=== PATIENT | male | born 1945 | race Caucasian/White ===

== ENCOUNTER → 2016-09-06 | Outpatient (CLI) | payer OTHER, MEDICARE ==
--- NOTE | 2016-09-06 19:49 | DX ---
Lumbar spine, 2 views History: Postlaminectomy syndrome, M96.1. Findings: Compare June 08, 2016. Clamps between spinous processes of L3-L4 and L4-L5 are intact a nd unchanged. Intervertebral disks shows severe loss of height at all lumbar levels, with lateral sub luxation at L3-L4, unchanged. [place] of dextroscoliosis at L3 is unchanged. No compression fracture of lumbar spine. Sacroiliac joints and symphysis pubis are normal. Calcifications of the abdominal aorta reveal an aneurysm of 4.7 cm maximum AP diameter, unchanged from May. Impressions: 1. Fusions of spinous processes of L3-L4 and L4-L5, unchanged. 2. Chronic multilevel lumbar disk degeneration with scoliosis and subluxation, unchanged. 3. Abdominal aortic aneurysm.
== END ==
LOC: FIMAGING 15:50
PROVIDERS: ATTEND Orthopaedic Surgery Orthopaedic Surgery of the Spine
DX: M51.36 Other intervertebral disc degeneration, lumbar region (principal); I71.4 Abdominal aortic aneurysm, without rupture; Z98.1 Arthrodesis status

== ENCOUNTER → 2016-09-13 | Outpatient (CLI) | payer OTHER, MEDICARE ==
--- NOTE | 2016-09-13 18:58 | DX ---
Cervical spine, 3 views History: Left-sided neck pain. Comparison: CT soft tissue neck of January 06, 2016. Findings: Trace anterolisthesis of C3 on C4 and C4 on C5 is stable. No fracture is identified. Verteb ral body heights are preserved. There is mild vertebral and uncovertebral spondylosis at C2-C3 and C3 -C4, with moderate vertebral and uncovertebral spondylosis at C4-C5. Severe vertebral and uncovertebr al spondylosis is present from C5 through C7, similar in appearance to the comparison CT. There is mu ltilevel moderate to severe facet hypertrophy, most prominent at C4-C5. There is no prevertebral soft tissue swelling. Atherosclerotic calcifications are again noted at the carotid bifurcations. Impression: Severe degenerative change from C5 through C7, with additional degenerative change as ab ove, with trace spondylolistheses at C3-C4 and C4-C5.
== END ==
LOC: FIMAGING 10:15
PROVIDERS: ATTEND Orthopaedic Surgery Orthopaedic Surgery of the Spine
DX: M50.322 Other cervical disc degeneration at C5-C6 level (principal); M43.12 Spondylolisthesis, cervical region; M46.92 Unspecified inflammatory spondylopathy, cervical region

== ENCOUNTER → 2017-12-20 | Outpatient (CLI) | payer OTHER, MEDICARE | LOC: FIMAGING 09:54 | PROVIDERS: ATTEND Family Medicine | DX: I71.4 Abdominal aortic aneurysm, without rupture (principal); I70.0 Atherosclerosis of aorta ==

== ENCOUNTER 2018-09-14 14:23 | Emergency (ER) | payer OTHER, MEDICARE ==
[2018-09-14] MEDS ORDERED: NS 500 ML IV ONE (15:47)
[2018-09-14] MEDS ORDERED: GABAPENTIN 300 MG CAP PO ONE (15:49)
--- NOTE | 2018-09-14 15:57 | EDPHY ---
H & P Time Seen by Provider: 09/14/18 15:11 HPI/ROS: HPI Mouth, facial pain. Concerned about infection. 73-year-old male by private vehicle with his . This patient has a long history of trigeminal neuralgia. He has been managed in the past with a combination of Depakote and baclofen. He presents to the emergency department complaining of intermittent attacks of his trigeminal neuralgia involving his left lower and mid maxillary area. He states that about 2 years ago he had a very serious dental and facial infection. He reports that this pain is now in the same location as that infection was in. He is concerned about possible developing infection similar to what he had in the past. He initially had seen primary care physician regarding this and was told to come to the emergency department for evaluation. He currently is not taking any regular medication for his trigeminal neuralgia. He has an appointment to see Dr. Gabino Barber of the neurology service next week for ongoing management of this problem. ROS: Constitutional: No fever, no chills. No weakness. Eyes: No discharge. No changes in vision. ENT: No sore throat. No nasal congestion or rhinorrhea. As above. Respiratory: No cough. No shortness of breath. Cardiac: No chest pain, no palpitations. Gastrointestinal: No abdominal pain, no vomiting, no diarrhea. Genitourinary: No hematuria. No dysuria or increased frequency with urination. Musculoskeletal: No back pain. No neck pain. No myalgias or arthralgias. Skin: No rashes. Neurological: No headache. No focal weakness or altered sensation. Past medical history: Hyperlipidemia, hypothyroid, factor 5 Leiden deficiency, AAA at 4 cm. Social history: Here with his . Nonsmoker. No alcohol. Physical Exam: General Appearance: Alert, no distress. He intermittently looks uncomfortable when he has attacks of his trigeminal neuralgia. This patient is responding to questions appropriately and in full sentences. This patient appears well- hydrated and well-nourished. Eyes: Pupils equal and round no pallor or injection. No lid edema, erythema or injection. ENT, Mouth: Mucous membranes are moist. The pharyngeal tissues are unremarkable. No edema or swelling. No asymmetry suggestive of abscess. No erythema or exudates. Dentures are unremarkable. There is no evidence of gingival swelling or swelling of the buccal mucosa. He has no facial swelling or erythema, trigeminal nerve distributions are intact. No cervical, submandibular, submental lymphadenopathy. Neurological: Motor sensory function is grossly intact. Cranial nerves are normal. Gait is normal. Skin: Warm and dry, no rashes. Musculoskeletal: Neck is supple and nontender. Extremities are symmetrical. All joints range without pain or impingement. Psychiatric: No agitation. No depression. Database: EKG: Imaging: Contrast enhanced maxillofacial CT: No obvious infection. There is a small sliver of what could represent inflammation left maxilla. Please see report by reading radiologist Dr. Karl Hannon. I discussed this study in detail with her. Procedures: Emergency department course: Triage vital signs reviewed. He is moderately hypertensive. Vital signs are otherwise unremarkable. His presentation is consistent with trigeminal neuralgia. He is afebrile. IV was established in triage. CT imaging of his maxillofacial tissues will be obtained to evaluate for possible infection. This will be contrast enhanced. I-STAT creatinine is within normal limits at 0.9. The patient agrees also to try a dose of gabapentin to see if this helps him with his trigeminal neuralgia pain. He consents to workup. 5:30 p.m., the patient was re-evaluated, results of CT scan discussed with him and his . He has intermittent attacks of his trigeminal neuralgia. His vital signs have remained normal. He has not had a fever. I think infectious etiology is unlikely. Plan at this time is to start him again on Depakote and baclofen which he has taken with successful relief of his trigeminal neuralgia in the past. He has prescriptions in verified with his pharmacist that he can fill them tonight. He will follow up with Neurology next week as scheduled. I also discussed ENT follow-up to re-evaluate findings as noted above on CT. He and his feel comfortable with this plan. I have also given him my cell phone number so that if he requires anything more over the weekend but does not think he needs to return to the emergency department he can call me. His son is a personal friend of mine. Return to emergency department precautions were thoroughly reviewed with him and his . All of their questions were answered. He was discharged from the emergency department in good condition. Differential Diagnosis: The differential diagnosis on this patient includes but is not limited to trigeminal neuralgia. Maxillofacial traumatic injury, infection unlikely. This represents a partial list of diagnoses considered. These considerations are based on history, physical exam, past history, reassessment and diagnostic testing. Smoking Status: Former smoker Constitutional: Initial Vital Signs Temperature (C) 36.8 C 09/14/18 14:32 Heart Rate 58 L 09/14/18 14:32 Respiratory Rate 18 09/14/18 14:32 Blood Pressure 149/97 H 09/14/18 14:32 O2 Sat (%) 95 09/14/18 14:32 O2 Delivery Mode Room Air Allergies/Adverse Reactions: phenytoin sodium [From Dilantin] Allergy (Severe, Verified 09/14/18 14:35) Rash phenytoin sodium extended [From Dilantin] Allergy (Severe, Verified 09/14/18 14: 35) Rash carbamazepine [From Tegretol] Allergy (Verified 09/14/18 14:35) Rash levofloxacin [From Levaquin] Allergy (Verified 09/14/18 14:36) Home Medications: Medication Instructions Recorded Crestor 5mg 5 mg PO DAILY 02/02/16 Levothyroxine 75 mcg PO DAILY 02/02/16 Neurontin 100 MG (RX) 100 mg PO BID 02/02/16 Tylenol 325mg (OTC) 1 - 2 tab PO PRN PRN 02/02/16 Medical Decision Making - Diagnostics Imaging Results: Imaging Impressions Face CT 09/14/18 15:57 Impression: 1. Sinus disease in the right maxillary sinus. I suspect this is an incidental finding. 2. Bony defect of approximately 10 mm in distance at the inferolateral left maxillary wall, possibly from bony resorption as a result of multiple prior dental work. This might be an incidental finding, and overlying fibrinous scar would not be identified by CT scan. 3. Soft tissue thickening that is asymmetric from the other side just superior and lateral to the inferior maxillary antrum on the left, adjacent to that bony defect. Again, differential includes scar formation versus early developing inflammation/infection. The lack of overlying subcutaneous inflammation or stranding is more reassuring that this might be scar. Findings are discussed with Dr. Castorena in the Emergency Department. The patient clinically does not have any signs or symptoms of infection in this region, and trigeminal neuralgia is thought to be likely the clinical diagnosis. Routine ENT follow up is suggested. - Data Points Laboratory Results: 09/14/18 15:55 POC Hgb 15.0 gm/dL gm/dL (13.7-17.5) POC Hct 44 % % (40-51) POC Sodium 141 mEq/L mEq/L (135-145) POC Potassium 3.9 mEq/L mEq/L (3.3-5.0) POC Chloride 104 mEq/L mEq/L (97-110) POC BUN 21 mg/dL mg/dL (7-23) POC Creatinine 0.9 mg/dL mg/dL (0.7-1.3) POC Glucose 82 mg/dL mg/dL (70-100) Medications Given: Discontinued Medications Gabapentin (Neurontin) 300 mg PO EDNOW ONE Stop: 09/14/18 15:50 Last Admin: 09/14/18 15:54 Dose: 300 mg Sodium Chloride (Ns) 500 mls @ 0 mls/hr IV ONCE ONE; Wide Open PRN Reason: Protocol Stop: 09/14/18 15:48 Last Admin: 09/14/18 15:54 Dose: 500 mls Point of Care Test Results: Chemistry 09/14/18 15:55 POC Sodium 141 mEq/L mEq/L (135-145) POC Potassium 3.9 mEq/L mEq/L (3.3-5.0) POC Chloride 104 mEq/L mEq/L (97-110) POC BUN 21 mg/dL mg/dL (7-23) POC Creatinine 0.9 mg/dL mg/dL (0.7-1.3) POC Glucose 82 mg/dL mg/dL (70-100) ISTAT H&H 09/14/18 15:55 POC Hgb 15.0 gm/dL gm/dL (13.7-17.5) POC Hct 44 % % (40-51) Departure - Departure Disposition: Home, Routine, Self-Care Clinical Impression: Trigeminal neuralgia Condition: Good Instructions: Trigeminal Neuralgia (ED) Additional Instructions: Read and follow provided instructions. Follow-up with Neurology, Dr. Gabino Barber, as scheduled next week for re- evaluation and further management of your trigeminal neuralgia. Fill prescription for and start taking baclofen and Depakote as prescribed tonight as discussed. Return to the emergency department for fever, facial swelling, facial discoloration, redness or warmth over your cheek area or other serious concerns. Feel free to call me as discussed if you have any questions or concerns. I have also provided you an ENT referral as discussed. Referrals: Gabino Barber DO [Medical Doctor] - As per Instructions [facility] [Outside] - As per Instructions
[2018-09-14] MEDS ORDERED: IOPAMIDOL (ISOVUE 370) 75 ML BTL IV ONE (16:13)
[2018-09-14 17:54] VITALS: BP 179/98
== END 2018-09-14 17:54 | disposition home or self-care (01) ==
DX: G50.0 Trigeminal neuralgia (principal); D68.51 Activated protein C resistance; E78.5 Hyperlipidemia, unspecified; E03.9 Hypothyroidism, unspecified; I71.4 Abdominal aortic aneurysm, without rupture; Z87.891 Personal history of nicotine dependence; Z79.899 Other long term (current) drug therapy
CPT/HCPCS: 70487; 99285; Q9967; 82435-PO; 82565-PO; 82947-PO; 84132-PO; 84295-PO; 84520-PO; 85014-ER

== ENCOUNTER → 2018-09-15 | Outpatient (CLI) | payer OTHER, MEDICARE | LOC: FIMAGING 08:34 | PROVIDERS: ATTEND Family Medicine | DX: I71.4 Abdominal aortic aneurysm, without rupture (principal) | CPT/HCPCS: 74175-ER; Q9967 ==

== ENCOUNTER → 2018-09-15 | Outpatient (CLI) | payer OTHER, MEDICARE ==
[~2018-09-15] MED LIST: IOPAMIDOL (ISOVUE-370) 150 ML BTL IV ONE
== END ==
LOC: CIMAGING 13:42
PROVIDERS: ATTEND Family Medicine
DX: I71.4 Abdominal aortic aneurysm, without rupture (principal)
CPT/HCPCS: 74175; Q9967

== ENCOUNTER → 2018-09-22 | Outpatient (CLI) | payer OTHER, MEDICARE | LOC: FIMAGING 15:54 ==

== ENCOUNTER 2018-10-18 11:22 | Inpatient (IN) | payer OTHER, MEDICARE ==
[2018-10-18] MEDS ORDERED: LR 1,000 ML IV ONE (11:42)
[2018-10-18] MEDS ORDERED: LIDOCAINE 1% 2 ML INJ ID PRN (11:42)
[2018-10-18] MEDS ORDERED: BUPIVACAINE 0.5% 30 ML SDV ONE (12:04)
[2018-10-18] MEDS ORDERED: THROMBIN (BOVINE) 20,000 UNIT VIAL TP ONE (12:04)
[2018-10-18] MEDS ORDERED: IOPAMIDOL (ISOVUE-300) 100 ML BTL ONE ×4 (12:21→15:17)
[2018-10-18] MEDS ORDERED: THROMBIN (BOVINE) 20,000 UNIT SPRAY TP ONE (12:31)
[2018-10-18] MEDS ORDERED: ceFAZolin 2 GM/DEXTROSE 100 ML IV ONE (12:59)
[2018-10-18] MEDS ORDERED: ROCURONIUM 100 MG/10 ML VIAL ONE (13:07)
[2018-10-18] MEDS ORDERED: PROPOFOL 200 MG/20 ML VIAL ONE ×2 (13:08→14:01)
[2018-10-18] MEDS ORDERED: fentaNYL 250 MCG/5 ML INJ ONE (13:08)
[2018-10-18] MEDS ORDERED: LIDOCAINE 2% 5 ML SDV ONE (13:09)
[2018-10-18] MEDS ORDERED: CEFAZOLIN 2 GM/DEXTROSE/100 ML BAG IV ONE (13:15)
--- NOTE | 2018-10-18 13:17 | PDHPUP ---
History & Physical Update H&P update statement: This history and physical update is based on an assessment of the patient which was completed after admission or registration (within 24 hours), but prior to the surgery/procedure. H&P update: H&P reviewed & patient examined, no change in patient's condition since H&P completed
--- NOTE | 2018-10-18 13:21 | POSTANESTH ---
Post Anesthetic Evaluation Cardiovascular Status: Normal, Stable Respiratory Status: Normal, Stable Level of Consciousness/Mental Status: Can Participate in Eval, Alert and Oriented Pain Control: Adequate, Prn Tx Ordered Nausea/Vomiting Control: Adequate, Prn Tx Ordered Complications Possibly Related to Anesthesia: None Noted
--- NOTE | 2018-10-18 13:21 | PDANEPAE ---
ANE History of Present Illness AAA for endovascular repair ANE Past Medical History - Cardiovascular History Hx Hypertension: No Hx Arrhythmias: No Hx Chest Pain: No Hx Coronary Artery / Peripheral Vascular Disease: Yes Hx CHF / Valvular Disease: No Hx Palpitations: No Cardiovascular History Comment: HYPERLIPIDEMIA. abdominal aortic aneurysm monitored (4cm now) - Pulmonary History Hx COPD: No Hx Asthma/Reactive Airway Disease: No Hx Recent Upper Respiratory Infection: Yes Hx Oxygen in Use at Home: No Hx Sleep Apnea: No Sleep Apnea Screening Result - Last Documented: Positive Pulmonary History Comment: 07/2018 URI - Neurologic History Hx Cerebrovascular Accident: No Hx Seizures: No Hx Dementia: No Neurologic History Comment: NEURALGIA- NEURONTIN. HX TRIGEMINAL NEURALGIA ( REMISSION) - Endocrine History Hx Diabetes: No Endocrine History Comment: HYPOTHYROID - Renal History Hx Renal Disorders: No - Liver History Hx Hepatic Disorders: No - Neurological & Psychiatric Hx Hx Neurological and Psychiatric Disorders: Yes Neurological / Psychiatric History Comment: LT SIDED TRIGEMINAL NEURALGIA - Cancer History Hx Cancer: No - Congenital Disorder History Hx Congenital Disorders: No - GI History Hx Gastrointestinal Disorders: No - Other Health History Other Health History: LT TRIGEMINAL NUURALGIA. FACTOR V LEIDEN. CHRONIC BACK PAIN HX OF PREV BACK SURG FOR STENOSIS AND RUPT DISC. DENTAL IMPLANTS. OSTEOARTHRITIS - Chronic Pain History Chronic Pain: Yes (BACK,LT SIDE OF FACE) - Surgical History Prior Surgeries: LARYNGOSCOPY 2016. 12/04/2015 L3-4 4-5 LAMINECTOMY, L4-5 MICRODISCECTOMY. MARCO ING HERNIA. MARCO CATARACT ANE Review of Systems Review of Systems: - Exercise capacity METS (RN): 4 METS ANE Patient History - Allergies Allergies/Adverse Reactions: phenytoin sodium [From Dilantin] Allergy (Severe, Verified 10/18/18 11:41) Rash phenytoin sodium extended [From Dilantin] Allergy (Severe, Verified 10/18/18 11: 41) Rash carbamazepine [From Tegretol] Allergy (Verified 10/18/18 11:41) Rash levofloxacin [From Levaquin] Allergy (Verified 10/18/18 12:03) - Home Medications Home medications: home medication list seen and reviewed Home Medications: Crestor 5mg 5 mg PO DAILY 02/02/16 [Last Taken 10/14/18] Levothyroxine 75 mcg PO DAILY 02/02/16 [Last Taken 10/14/18] Baclofen 20 mg (*) QID 10/12/18 [Last Taken 10/18/18 07:00] Depakote ER 250 MG (*) QID 10/12/18 [Last Taken 10/18/18 10:30] Herbals/Supplements -Info Only DAILY 10/12/18 [Last Taken 10/14/18] Tylenol 325mg (*) PRN 10/13/18 [Last Taken 10/17/18] - NPO status NPO Since - Liquids (Date): 10/18/18 NPO Since - Liquids (Time): 10:00 NPO Since - Solids (Date): 10/17/18 NPO Since - Solids (Time): 20:00 - Smoking Hx Smoking Status: Former smoker - Family Anes Hx Family Hx Anesthesia Complications: NONE ANE Labs/Vital Signs - Vital Signs Blood Pressure: 134/99 Heart Rate: 71 Respiratory Rate: 16 O2 Sat (%): 96 Height: 187.96 cm Weight: 90.718 kg ANE Physical Exam - Airway Neck exam: FROM Mallampati Score: Class 2 Mouth exam: normal dental/mouth exam - Pulmonary Pulmonary: no respiratory distress - Cardiovascular Cardiovascular: regular rate and rhythym - ASA Status ASA Status: III ANE Anesthesia Plan Anesthesia Plan: general endotracheal anesthesia Lines/Monitors: arterial line Specialized Airway: video laryngoscope
[2018-10-18] MEDS ORDERED: PHENYLEPHRINE 10 MG/ML SDV ONE (13:48)
[2018-10-18] MEDS ORDERED: DEXAMETHASONE 4 MG/ML VIAL ONE (14:02)
[2018-10-18] MEDS ORDERED: ONDANSETRON 4 MG/2 ML VIAL ONE (14:06)
[2018-10-18] MEDS ORDERED: SUGAMMADEX SODIUM 200 MG/2 ML VIAL IVP ONE (14:06)
[2018-10-18] MEDS ORDERED: HEPARIN 10,000 UNIT/10 ML MDV (1,000 UNIT/ML) ONE (14:32)
[2018-10-18] MEDS ORDERED: ePHEDrine SULFATE 25 MG/5 ML SYR ONE (14:35)
[2018-10-18] MEDS ORDERED: LIDOCAINE 1% 300 MG/30 ML SDV ONE (15:17)
[2018-10-18] MEDS ORDERED: HYDROmorphONE/DILAUDID 2 MG/ML INJ IVP PRN (15:49)
[2018-10-18] MEDS ORDERED: METOCLOPRAMIDE 10 MG/2 ML VIAL IVP PRN (15:49)
[2018-10-18] MEDS ORDERED: NALOXONE HCL 0.4 MG/ML INJ IVP PRN (15:49)
[2018-10-18] MEDS ORDERED: ALBUTEROL 3 ML DEYVIAL IH PRN (15:49)
[2018-10-18] MEDS ORDERED: ACETAMINOPHEN 500 MG TAB PO PRN (15:49)
[2018-10-18] MEDS ORDERED: LR 500 ML IV PRN (15:49)
[2018-10-18] MEDS ORDERED: HYDROCODONE/APAP 5/325 TAB PO PRN (15:49)
[2018-10-18] MEDS ORDERED: ONDANSETRON 4 MG/2 ML VIAL IVP PRN ×2 (15:49→15:53)
[2018-10-18] MEDS ORDERED: oxyCODONE IR 5 MG TAB PO PRN (15:49)
[2018-10-18] MEDS ORDERED: PROMETHAZINE HCL 25 MG/ML INJ IVP PRN (15:49)
[2018-10-18] MEDS ORDERED: fentaNYL 100 MCG/2 ML INJ IVP PRN (15:49)
[2018-10-18] MEDS ORDERED: MAGNESIUM HYDROXIDE 30 ML UDCUP PO PRN (15:53)
[2018-10-18] MEDS ORDERED: LACTULOSE 20 GM/30 ML UDCUP PO PRN (15:53)
[2018-10-18] MEDS ORDERED: BISACODYL 10 MG SUPP PR PRN (15:53)
[2018-10-18] MEDS ORDERED: POLYETHYLENE GLYCOL 3350 17 GM PKT PO PRN (15:53)
--- NOTE | 2018-10-18 15:53 | PDRADPN ---
Radiology Procedure Note Date of Procedure: 10/18/18 Radiologist: Adali Hannon Anesthesia: GET(General Endotracheal) Pre-op Diagnosis: AAA Post-op Diagnosis: SAME Indication: ENLARGING AAA Procedure: ENDOVASCULAR REPAIR WITH BILATERAL CUTDOWNS Finding(s): NO LEAK Inf/Abcess present in the surg proc area at time of surgery?: No
[2018-10-18] MEDS ORDERED: fentaNYL 100 MCG/2 ML INJ ONE (16:00)
[2018-10-18] MEDS ORDERED: NS 1,000 ML IV SCH (16:00)
[2018-10-18] MEDS ORDERED: PROTAMINE SULFATE 50 MG/5 ML VIAL IVP ONE (16:15)
[2018-10-18] MEDS ORDERED: LABETALOL HCL 20 MG/4 ML INJ IVP ONE ×2 (16:59→17:14)
[2018-10-18] MEDS: LABETALOL HCL 5 MG/ML 20 ML MDV IVP PRN ×3 (17:02→17:19)
[2018-10-18] MEDS ORDERED: niCARdipine/NACL 200 ML IV SCH (17:30)
[2018-10-18] MEDS: SENNOSIDES/DOCUSATE SODIUM TAB PO SCH (20:03)
[2018-10-18] MEDS: OXYCODONE/APAP 5/325 TAB PO PRN ×2 (20:03→21:29)
[2018-10-18] MEDS ORDERED: ACETAMINOPHEN 325 MG TAB PO PRN (20:21)
[2018-10-18] MEDS ORDERED: DIVALPROEX ER 250 MG TAB PO SCH (21:00)
[2018-10-18] MEDS: DIVALPROEX NA 250 MG TAB PO SCH ×2 (21:45→22:34)
[2018-10-18] MEDS: BACLOFEN 10 MG TAB PO SCH (21:45)
[2018-10-18 22:33] LABS: PLATELET COUNT 139 10^3/uL (150-400)
[2018-10-19] MEDS: OXYCODONE/APAP 5/325 TAB PO PRN ×3 (03:22→19:51)
[2018-10-19] MEDS: DIVALPROEX NA 250 MG TAB PO SCH ×4 (06:57→19:54)
[2018-10-19] MEDS: LEVOTHYROXINE 88 MCG TAB PO SCH (06:57)
[2018-10-19] MEDS: BACLOFEN 10 MG TAB PO SCH ×4 (07:01→19:52)
[2018-10-19 07:05] LABS: PLATELET COUNT 113 10^3/uL (150-400)
--- NOTE | 2018-10-19 08:07 | CPEKG ---
Test Reason : OPEN Blood Pressure : / mmHG Vent. Rate : 060 BPM Atrial Rate : 057 BPM P-R Int : 203 ms QRS Dur : 141 ms QT Int : 485 ms P-R-T Axes : 071 082 270 degrees QTc Int : 485 ms Sinus rhythm LBBB Confirmed by Devan Parikh ([id number]) on 10/19/2018 8:07:24 AM Referred By: Adali Hannon Confirmed By:Devan Parikh
[2018-10-19] MEDS: ROSUVASTATIN CALCIUM 10 MG TAB PO SCH (08:25)
[2018-10-19] MEDS: SENNOSIDES/DOCUSATE SODIUM TAB PO SCH ×2 (08:25→19:53)
--- NOTE | 2018-10-19 09:43 | ASMTCASEMG ---
Living Arrangements What is your living Answers: With Spouse arrangement? Who do you live with? Type Of Residence What kind of residence do Answers: House you live in? Discharge Plan Comments Coordination Status Comments Notes: Patient is a 73yo male who comes to [facility] for surgery for abdominal aortic aneurysm. PT/OT evals ordered. D/C plan TBD. CM will follow. Date Signed: 10/19/2018 09:42 AM Electronically Signed By:Karolina Wilson LCSW
--- NOTE | 2018-10-19 13:53 | PDMN ---
Medical Necessity Medical necessity: [facility] IP only surgery; cpt 60714 AAA Repair
--- NOTE | 2018-10-19 14:12 | SOAPPROG ---
SOAP Progress Note Assessment/Plan: Assessment: 73 y/o M s/p bilateral femoral artery exposures for endovascular AAA repair POD #1 S: No complaints, pain controlled. Reports that his trigeminal neuralgia is improved. O: Alert Afebrile RRR CTAB, no increased WOB Bilateral lower extremities: incisions well dressed, feet warm, + pedal pulses Plan: Ancef q8hrs for 24 hours for graft protection. Dispo: home likely tomorrow. 10/19/18 14:09 Objective: Vital Signs Temp Pulse Resp BP Pulse Ox 37 C 61 14 119/62 95 10/19/18 12:00 10/19/18 13:57 10/19/18 13:57 10/19/18 13:57 10/19/18 13:57 Laboratory Results 10/19/18 06:45 10/18/18 10/19/18 10/20/18 05:59 05:59 05:59 Intake Total 1545 Output Total 1740 Balance -195 ICD10 Worksheet Patient Problems: Problems Problem Status Onset lumbar degenerative scoliosis Acute
--- NOTE | 2018-10-19 16:02 | SOAPPROG ---
SOAP Progress Note Assessment/Plan: Assessment: PPD 1 S/P AAA stentgraft repair. Slow in getting out of bed and ambulating. Otherwise WNL and stable. Patient not ready to go home yet. Plan: Continue to encourage OOB with ambulation. 10/19/18 16:01 Subjective: Has not been up much today. made one round down the escoto and felt better with that. concerned about not sitting up 90 degrees. some LT knee "pain and swelling." Also some mild LLQ abdominal cramping. Says his LT facial pain completely went away after extubation. Objective: Vital Signs Temp Pulse Resp BP Pulse Ox 37 C 61 14 119/62 95 10/19/18 12:00 10/19/18 13:57 10/19/18 13:57 10/19/18 13:57 10/19/18 13:57 Laboratory Results 10/19/18 06:45 10/18/18 10/19/18 10/20/18 05:59 05:59 05:59 Intake Total 1545 Output Total 1740 Balance -195 labs noted. Pulses normal. No hematoma at groins. No bruising or swelling at LT knee. Abd soft. ICD10 Worksheet Patient Problems: Problems Problem Status Onset lumbar degenerative scoliosis Acute
[2018-10-20] MEDS: OXYCODONE/APAP 5/325 TAB PO PRN (04:03)
[2018-10-20] MEDS: BACLOFEN 10 MG TAB PO SCH ×2 (08:24→13:38)
[2018-10-20] MEDS: DIVALPROEX NA 250 MG TAB PO SCH ×2 (08:24→13:38)
[2018-10-20] MEDS: LEVOTHYROXINE 88 MCG TAB PO SCH (08:24)
[2018-10-20 08:30] VITALS: BP 141/84
[2018-10-20] MEDS ORDERED: POLYETHYLENE GLYCOL 3350 17 GM PKT PO SCH (09:00)
[2018-10-20] MEDS: SENNOSIDES/DOCUSATE SODIUM TAB PO SCH (09:14)
[2018-10-20] MEDS: ROSUVASTATIN CALCIUM 10 MG TAB PO SCH (09:15)
--- NOTE | 2018-10-20 09:47 | SOAPPROG ---
SOAP Progress Note Assessment/Plan: Assessment: 73 y/o M s/p bilateral femoral artery exposures for endovascular AAA repair POD #2 S: Reports a burning sensation in his L knee with ambulation. Has a "bad knee" normally and has been told he needs a TKA. No other complaints. O: Alert Afebrile RRR CTAB, no increased WOB Bilateral lower extremities: incisions cdi with carolee intact, feet warm, + pedal pulses Plan: Dispo: home later today. 10/20/18 09:45 Objective: Vital Signs Temp Pulse Resp BP Pulse Ox 36.7 C 69 20 141/84 H 97 10/20/18 04:00 10/20/18 08:00 10/20/18 08:00 10/20/18 08:00 10/20/18 08:00 Laboratory Results 10/19/18 06:45 10/19/18 10/20/18 10/21/18 05:59 05:59 05:59 Intake Total 3736 4649 Output Total 1740 900 Balance -195 1589 ICD10 Worksheet Patient Problems: Problems Problem Status Onset lumbar degenerative scoliosis Acute
--- NOTE | 2018-10-20 10:29 | SOAPPROG ---
SOAP Progress Note Assessment/Plan: Assessment: PPD 1 S/P AAA stentgraft repair. Slow in getting out of bed and ambulating. Otherwise WNL and stable. Patient not ready to go home yet. Plan: Continue to encourage OOB with ambulation. 10/19/18 16:01 10/20/18 10:27 Continue with ambulation with assistance today. Anticipate D/C later today when ride arrives. Patient happy to go home today. Keflex for possible sinus infection. Percocet for pain . IR will call for CTA follow up in 6 months F/U with Dr. Guillen for staple removal in a week. Subjective: HAS BEEN WALKING MORE. MILD PAIN AT GROINS AND LT KNEE. Objective: Vital Signs Temp Pulse Resp BP Pulse Ox 36.7 C 69 20 141/84 H 97 10/20/18 04:00 10/20/18 08:00 10/20/18 08:00 10/20/18 08:00 10/20/18 08:00 Laboratory Results 10/19/18 06:45 10/19/18 10/20/18 10/21/18 05:59 05:59 05:59 Intake Total 1545 2489 Output Total 1740 900 Balance -195 1589 INCISIONS CLEAN. - Pending Discharge Pending Discharge Within 24 Hours: Yes Pending Discharge Date: 10/21/18 Pending Discharge Time: 11:00 ICD10 Worksheet Patient Problems: Problems Problem Status Onset lumbar degenerative scoliosis Acute
--- NOTE | 2018-10-20 19:10 | GDS ---
[f rep st] DISCHARGE SUMMARY ADMISSION DIAGNOSIS: Infrarenal abdominal aortic aneurysm. DISCHARGE DIAGNOSIS: Infrarenal abdominal aortic aneurysm. PROCEDURE: 10/18/2018, endovascular repair of aneurysm, with bilateral femoral cutdown. HOSPITAL COURSE: The patient's procedure went very well from both the cutdown as well as the stent g raft standpoint. It took the patient a while to resume ambulation, mostly because of his concern of not bending at the groin region. Once the patient's concerns were alleviated by continued discussion , the patient had no difficulty walking with assistance, such as walker. He did not have any abdomin al discomfort. His pulses were normal, and his vitals were stable throughout the hospital stay. The incisions at the inguinal region were clean without hematoma. The patient complained of a little bi t of left knee pain; however, he had degenerative arthritis of the left knee to begin with, and there might be peripheral nerve inflammation from the cutdown. Nonetheless, this was not prohibitory of a mbulation. On postoperative day #2, the patient was discharged to home in stable condition. There were no addit ional medications from stent graft standpoint. The patient was discharged on Keflex and some pain meds. He was presumed that he might have a bit of a sinus infection that could have aggravated trigeminal neuralgia. FOLLOWUP: Interventional Radiology will call the patient for CT angiographic followup in 6 months to evaluate for endoleak. He has an appointment with Dr. Robert Guillen in the office in 1 week for sta ple removal. /[id number]/MODL
--- NOTE | 2018-10-22 01:08 | GOP ---
[f rep st] OPERATIVE REPORT DATE OF OPERATION: 10/18/2018 SURGEON: Robert Guillen MD WAISTLINE JOINER OVERLOCK: Khloe Delcid PA-C. ANESTHESIOLOGIST: Dr. Perry. PREOPERATIVE DIAGNOSIS: Abdominal aortic aneurysm. POSTOPERATIVE DIAGNOSIS: Abdominal aortic aneurysm. PROCEDURE PERFORMED: 1. Bilateral common femoral artery exposure for endovascular aortic repair. 2. Bilateral common femoral artery repair of arteriotomies. FINDINGS: DESCRIPTION OF PROCEDURE: OPERATIVE PROCEDURE: The patient was brought to the operating room where he received satisfactory ge neral endotracheal anesthesia by Dr. Perry. He was placed in the supine position and prepped and draped in the usual sterile fashion. Bilateral vertical incisions were made in the groin. Dissectio n was carried down through the subcutaneous tissue up to the edge of the inguinal ligament. The comm on femoral, profunda femoris, superficial femoral arteries, and multiple branches were dissected free and controlled with vessel loops. This was completed on both groin exposures. At that point, the c ase was turned over to Dr. Aadli Hannon for endovascular stent placement. After completion of her portion the procedure, we returned to repair the arteriotomies. The large-bore sheaths were removed careful ly. The arteriotomies were then debrided where necessary and closed with running 5-0 Prolene sutures with flow adventism to the leg, initially through the profunda femoris and then through the superf icial femoral. All vessels were flushed prior to completion of the suture lines. Both wounds were r epaired in a similar manner, and then the groins were closed in layers using 2-0 Vicryl for the fasci a, 3-0 Vicryl for the subcu, and skin carolee for the skin. The wounds were infiltrated with 0.5% Ma rcaine. Heparin was reversed with some protamine. He tolerated the procedure well and was taken to recovery room in good condition with good distal pulses. /[id number]/MODL
== END 2018-10-20 13:30 | disposition home or self-care (01) | DRG 269 ==
LOC: FSGY 11:22 → F2N 15:54
PROVIDERS: ADMIT Radiology Diagnostic Radiology; ATTEND Radiology Diagnostic Radiology
PROC: 04V03DZ Restriction of Abdominal Aorta with Intraluminal Device, Percutaneous Approach (ICD-10-PCS; principal; 2018-10-18 13:00)
DX: I71.4 Abdominal aortic aneurysm, without rupture (principal); I25.10 Atherosclerotic heart disease of native coronary artery without angina pectoris; E03.9 Hypothyroidism, unspecified; Z86.718 Personal history of other venous thrombosis and embolism
CPT/HCPCS: 97116-GP; 97161-GP; 97165-GO; 97530-GO; 97530-GP; 97535-GO; C1769; C1874; J0690; J1100; J1644; J2370; J2405; J2704; J2720; J3010; Q9967